=== PATIENT | male | born 1985 | race Caucasian/White ===

== ENCOUNTER 2021-05-28 20:19 | Emergency (ER) | payer SELFPAY ==
[~2021-05-28] VITALS: Ht 182.9 cm; Wt 74.8 kg
[2021-05-28] MEDS ORDERED: CLINDAMYCIN HC150 MG PO (20:44)
[2021-05-28 21:13] VITALS: BP 143/94
== END 2021-05-28 21:13 | disposition home or self-care (01) ==
LOC: FSED 20:43
DX: L08.9 Local infection of the skin and subcutaneous tissue, unspecified (principal); I25.2 Old myocardial infarction; Z86.73 Personal history of transient ischemic attack (TIA), and cerebral infarction without residual deficits
CPT/HCPCS: 99282